=== PATIENT | male | born 1980 | race Caucasian/White ===

== ENCOUNTER 2017-03-28 07:09 | Emergency (ER) | payer OTHER ==
[~2017-03-28] VITALS: Ht 177.8 cm; Wt 177.5 kg
[~2017-03-28 07:09] MED LIST: AMLO-147 PO; LOSA100T7 PO; OMEP20CA9 PO; TRAM50TA2 PO
[2017-03-28 07:12] VITALS: Ht 177.8 cm; Wt 177.5 kg
[2017-03-28] MEDS ORDERED: KETOROLAC 30 MG INJ IM STA (07:58)
[2017-03-28] MEDS ORDERED: OXYCODONE/ACETAMINOPHEN (5/325) TAB PO ONE (08:00)
--- NOTE | 2017-03-28 08:52 | RADRPT ---
PROCEDURE: CT Abdomen and Pelvis without contrast. CLINICAL INDICATION: Abdominal pain. TECHNIQUE: Routine axial tomographic images of the abdomen and pelvis were obtained from the domes the diaphragm to the symphysis pubis. The patient was scanned withoutoral or intravenous contrast. Coronal and sagittal reformatted images were obtained from the axial source images. Images were re viewed on a high-resolution PACS workstation. The total exam CTDI equals 23.82 mGy and the total exa m DLP equals 1639.06 mGy-cm. One or more of the following dose reduction techniques were used: Aut omated exposure control, adjustment of the mA and / or kV according to patient size, or use of itera tive reconstruction technique. COMPARISON: None. FINDINGS: The visualized portions of the lung bases are clear. Evaluation of the intra-abdominal solid or ranjith is somewhat limited on this noncontrast examination. The liver is mildly enlarged and demonstr ates diffuse hypoattenuation. There is no intra or extrahepatic biliary dilatation. The gallbladde r is unremarkable by CT criteria. The spleen, pancreas, and left adrenal gland are unremarkable. Th ere is a 4.1 cm fat density nodule arising from the right adrenal gland. There are enlarged pericava l and periportal lymph nodes measure up to 2 cm in short axis. The kidneys are symmetric in size. No renal, ureteral, or bladder calculi are identified. There is very mild left perinephric fat stranding. The urinary bladder is grossly unremarkable. The bowel demonstrates normal course and caliber. There is no evidence of bowel obstruction. The a ppendix is normal in appearance. The pelvic organs are grossly unremarkable. No intraperitoneal fr ee fluid, free air, or abscess is identified. No retroperitoneal, mesenteric, or inguinal lymphadeno carl is identified. The aorta is normal in caliber. The osseous structures are unremarkable. No significant subcutaneous soft tissue abnormalities are seen. IMPRESSION: 1. Limited noncontrast CT of the abdomen and pelvis. There is mild left perinephric fat stranding. Findings may reflect recently passed stone or ascending urinary tract infection such as pyelonephri tis. Correlation with urinalysis is recommended. 2. No renal, ureteral or bladder calculi identified. 3. Hepatic steatosis. 4. 4.1 cm fat density lesion arising from the right adrenal gland, likely reflecting an adrenal mye lolipoma. Follow-up imaging in 6-12 months is recommended to ensure stability. 5. Multiple prominent pericaval and periportal lymph nodes. Close attention on follow-up imaging i s advised. RPTAT: HH .Wendy Velasquez MD, Date Time Electronically viewed and signed by .Wendy Velasquez MD, on 03/28/2017 08:52 .G/
[2017-03-28] MEDS ORDERED: CIPR500T4 PO (09:23)
[2017-03-28] MEDS ORDERED: IBUP-1542 PO (09:23)
[2017-03-28 10:15] VITALS: BP 140/81; PULSE 81; RESP 16
--- NOTE | 2017-03-28 14:30 | ERD ---
ER Documentation Chief Complaint Date/Time DATE: 03/28/17 TIME: 14:27 Chief Complaint Complains of lower back painx 1 week HPI 36-year-old man complains of left lower back pain radiating to the left flank and groin, he states he has a long history of lumbar back pain and has herniated lumbar disks. He denies loss of sensation to the lower extremities or perianal area, no loss of bowel or bladder control, no fevers or chills, no chest pain or shortness of breath. Patient denies recent trauma to the back. ROS All systems reviewed and are negative except as per history of present illness. Medications Home Meds Active Scripts Ciprofloxacin Hcl* (Ciprofloxacin Hcl*) 500 Mg Tablet, 500 MG PO BID for 3 Days , TAB Prov:JOSH GO MD 03/28/17 Ibuprofen* (Motrin*) 600 Mg Tab, 600 MG PO Q8 for PAIN AND/OR INFLAMMATION, #30 TAB Prov:JOSH GO MD 03/28/17 Reported Medications Losartan Potassium* (Losartan Potassium*) 100 Mg Tablet, 100 MG PO QHS, TAB 11/03/14 Amlodipine Besylate* (Amlodipine Besylate*) 10 Mg Tablet, 10 MG PO DAILY, TAB 11/03/14 Discontinued Reported Medications Omeprazole* (Prilosec*) 20 Mg Capsule.dr, 20 MG PO BID, CAP 11/03/14 Discontinued Scripts Tramadol HCl (Tramadol HCl) 50 Mg Tab, 50 MG PO Q6 Y for PAIN, #20 TAB Prov:RORY MOELLER 02/15/15 Allergies Allergies: Coded Allergies: No Known Allergy (Unverified , 11/03/14) PMhx/Soc Obesity, lumbar back disc herniation, gastritis, hypertension Hx Cardiac Disorders: Yes (htn) Hx Miscellaneous Medical Probl: Yes (sleep apnea. ) Hx Alcohol Use: No Hx Substance Use: No Hx Tobacco Use: No Smoking Status: Never smoker FmHx Family History: No diabetes Physical Exam Vitals Vital Signs Date Time Temp Pulse Resp B/P Pulse Ox O2 Delivery O2 Flow Rate FiO2 03/28/17 10:15 81 16 140/81 97 Room Air 03/28/17 07:12 99.1 75 20 206/107 94 Physical Exam GENERAL: Well-developed, well-nourished, in moderate discomfort HEENT: Moist mucous membranes, pink conjunctiva, no cervical spine tenderness or step-off deformities, no goiter, no jaundice or icterus, extraocular movements intact without pain. No submandibular induration, and no pharyngeal erythema NEURO: Alert and oriented 3, cranial nerves II through XII intact bilaterally, pupils equal round reactive to light, no focal deficits or facial asymmetry, sensation intact distally Strength 5/5 in upper and lower extremities bilaterally CARDIAC: Regular rate and rhythm, no murmurs rubs or gallops LUNGS: Clear bilaterally no wheezing crackles or stridor ABDOMEN: Soft nontender, no guarding, no rigidity, no rebound, no psoas sign no obturator sign. Normoactive bowel sounds SKIN: Warm and dry to touch, no abrasions, contusions, or hematomas, no lacerations, no ecchymosis, no target lesions, and without ulcers EXTREMITIES: No clubbing cyanosis or edema, calves are bilaterally symmetrical, no Homans sign, no popliteal cord sign. Distal pulses equal and bilateral PSYCH: Normal affect without agitation or irritability Results 24 hrs Current Medications Medications (Trade) Dose Ordered Sig/Claire Route PRN Reason Start Time Stop Time Status Last Admin Dose Admin Ketorolac Tromethamine (Toradol) 30 mg ONCE STAT IM 03/28/17 07:58 03/28/17 07:59 DC 03/28/17 08:25 Oxycodone/ Acetaminophen (Percocet (5/ 325)) 1 tab ONCE ONCE PO 03/28/17 08:00 03/28/17 08:01 DC 03/28/17 08:23 Procedures/MDM I controlled his symptoms with Toradol 30 mg intramuscular injection and Percocet [address] scan of the abdomen pelvis revealed left-sided perinephric fat stranding although no obvious urinary calculus was noted. Patient is without complaints of hematuria and states his pain is completely resolved, I suspect early UTI and recent urinary calculus which may have passed already. He will be managed as an outpatient with analgesics and a short course of antibiotics. Differential diagnoses considered, included but not limited to acute coronary syndrome, pulmonary embolism, aortic dissection, abdominal aortic aneurysm, sepsis, stroke, meningitis, encephalitis, pneumonia, appendicitis, cholecystitis , bowel obstruction, pyelonephritis, nephrolithiasis, cystitis, as well as metabolic, hematologic, and electrolyte abnormalities. As well as abscess, cellulitis, fractures, and dislocations. Patient feels much better at this time, and vital signs are normal, symptoms have improved. I did give strict instructions to return to the ED if symptoms continue or worsen, patient will otherwise follow-up with primary care physician. Patient understood instructions and agreed to plan. Disclaimer: Inadvertent spelling and grammatical errors are likely due to EHR/ dictation software use and do not reflect on the overall quality of patient care. Also, please note that the electronic time recorded on this note does not necessarily reflect the actual time of the patient encounter. Departure Diagnosis: Primary Impression: Lumbar back sprain Encounter type: initial encounter Qualified Code: S33.5XXA - Lumbar sprain, initial encounter Additional Impression: Flank pain Condition: Good Patient Instructions: Flank Pain, Uncertain Cause JOSH GO MD Mar 28, 2017 14:29
== END 2017-03-28 10:17 | disposition home or self-care (01) ==
LOC: E/R 07:09
DX: S33.5XXA Sprain of ligaments of lumbar spine, initial encounter (principal); E66.9 Obesity, unspecified; I10 Essential (primary) hypertension; S39.91XA Unspecified injury of abdomen, initial encounter; X58.XXXA Exposure to other specified factors, initial encounter; Y92.9 Unspecified place or not applicable; Z68.43 Body mass index [BMI] 50.0-59.9, adult
CPT/HCPCS: 74176; 96372; J1885; Z7502; Z7610